=== PATIENT | male | born 1950 | race Caucasian/White ===

== ENCOUNTER 2021-11-21 12:46 | Emergency (ER) | payer MEDICARE, BC ==
[~2021-11-21] VITALS: Ht 175.3 cm; Wt 93.0 kg
[~2021-11-21 12:46] MED LIST: ANTIVERT12.5 MG PO; ASPIRIN CHEWABL81 MG PO; ASPIRIN81 MG PO; CIPRO; CIPROFLOXACN250 MG PO; DILAUDID 2MG2 MG/TA1 PO; EQL ASPIRIN LOW81 MG PO; KEFLEX500 M1 PO; LOSARTAN POTASS50 MG PO; METOPROL TAR25 MG PO; PYRIDIUM200 MG PO; ROCEPHIN1 G1 IV; SIMVASTATIN20 MG PO; TAMSULOSIN HCL0.4 MG PO; TERAZOSIN1 MG PO; TOPROL XL50 MG PO; VENLAFAXINE HCL75 M1 PO
[2021-11-21 12:58] VITALS: BP 145/81
[2021-11-21 13:00] VITALS: BP 137/108
[2021-11-21] MEDS ORDERED: TAMSULOSIN0.4 MG PO (13:05)
[2021-11-21 13:34] LABS: HEMATOCRIT 43.2 % (39.0-50.0); HEMOGLOBIN 14.4 g/dl (14.0-18.0); IMMATURE GRANULOCYTES 0.4 % (0.0-5.0); MEAN CELL VOLUME 87.6 fL CALC (80.0-100.0); MEAN CORPUSCULAR HGB 29.2 pG CALC (26.0-32.0); MEAN CORPUSCULAR HGB CONC 33.3 g/dL CAL (32.0-36.0); NEUT# 5.7 thou/uL (1.82-7.42); RED BLOOD COUNT 4.93 mill/uL (4.70-6.10); RED CELL DISTRI WIDTH 13.3 % (11.5-15.5)
[2021-11-21 14:16] LABS: ALBUMIN 4.9 g/dL (3.2-5.0); ALKALINE PHOSPHATASE 109 u/l (38-126); ANION GAP 14 (6-22 (CALC)); BILIRUBIN, TOTAL 0.8 mg/dL (0.0-1.4); BUN 23 mg/dL (8-23); BUN/CREATININE RATIO 21 (12-20 (CALC)); CARBON DIOXIDE 28 mmol/l (22-30); CHLORIDE 103 mmol/l (95-108); CREATININE 1.1 mg/dL (0.7-1.3); GFR FOR AFR.AMER. > 60 ML/MIN (>=60 (CALC)); GFR OTHER RACES > 60 ML/MIN (>=60 (CALC)); POTASSIUM 4.2 mmol/l (3.5-5.1); SGOT/AST 29 u/l (19-48); SODIUM 140 mmol/l (137-146); TOTAL PROTEIN 7.6 g/dL (6.3-8.2)
[2021-11-21 14:28] LABS: MYOGLOBIN 33 ng/mL (0 - 121)
[2021-11-21 14:49] LABS: URINE BILIRUBIN - DIPSTICK NEGATIVE (NEGATIVE); URINE BLOOD DIPSTICK NEGATIVE (NEGATIVE); URINE COLOR YELLOW; URINE GLUCOSE - DIPSTICK NEGATIVE (NEGATIVE); URINE KETONE NEGATIVE (NEGATIVE); URINE LEUK ESTERASE NEGATIVE (NEGATIVE); URINE PROTEIN - DIPSTICK NEGATIVE (NEG-TRACE); URINE SPECIFIC GRAVITY 1.015; URINE UROBILINOGEN - DIPSTICK 0.2 E.U./dL (0.2)
[2021-11-21 14:55] LABS: URINE NITRITE - DIPSTICK NEGATIVE (Negative)
[2021-11-21] MEDS ORDERED: MECLIZINE25 M2 PO (15:10)
[2021-11-21 15:41] VITALS: BP 136/74
== END 2021-11-21 15:47 | disposition home or self-care (01) ==
LOC: ED 12:46
PROVIDERS: Nurse Practitioner
DX: R42 Dizziness and giddiness (principal); I10 Essential (primary) hypertension; Z86.73 Personal history of transient ischemic attack (TIA), and cerebral infarction without residual deficits

== ENCOUNTER 2022-02-04 08:59 | Emergency (ER) | payer MEDICARE, BC ==
[~2022-02-04] VITALS: Ht 175.3 cm; Wt 92.9 kg
[~2022-02-04 08:59] MED LIST changes: +MECLIZINE25 M2 PO; +TAMSULOSIN0.4 MG PO
[2022-02-04 09:57] VITALS: BP 153/77
[2022-02-04 10:01] VITALS: BP 153/131
[2022-02-04 10:12] VITALS: BP 146/73
[2022-02-04 10:18] LABS: URINE BILIRUBIN - DIPSTICK NEGATIVE (NEGATIVE); URINE BLOOD DIPSTICK SMALL (NEGATIVE); URINE COLOR YELLOW; URINE GLUCOSE - DIPSTICK NEGATIVE (NEGATIVE); URINE KETONE NEGATIVE (NEGATIVE); URINE PROTEIN - DIPSTICK 30 mg/dL (NEG-TRACE); URINE SPECIFIC GRAVITY >=1.030; URINE UROBILINOGEN - DIPSTICK 0.2 E.U./dL (0.2)
[2022-02-04 10:21] LABS: URINE LEUK ESTERASE SMALL (NEGATIVE); URINE NITRITE - DIPSTICK POSITIVE (Negative)
[2022-02-04 10:26] LABS: URINE WBC 50-100 WBC/hpf (0-5)
[2022-02-04 10:30] VITALS: BP 155/79
[2022-02-04 10:43] LABS: HEMATOCRIT 44.4 % (39.0-50.0); HEMOGLOBIN 14.5 g/dl (14.0-18.0); IMMATURE GRANULOCYTES 1.1 % (0.0-5.0); MEAN CORPUSCULAR HGB 29.1 pG CALC (26.0-32.0); MEAN CORPUSCULAR HGB CONC 32.7 g/dL CAL (32.0-36.0); NEUT# 14.23 thou/uL (1.82-7.42); RED BLOOD COUNT 4.99 mill/uL (4.70-6.10); RED CELL DISTRI WIDTH 13.4 % (11.5-15.5)
[2022-02-04 10:53] LABS: ALKALINE PHOSPHATASE 85 u/l (38-126); ANION GAP 10 (6-22 (CALC)); BILIRUBIN, TOTAL 0.6 mg/dL (0.0-1.4); BUN 28 mg/dL (8-23); BUN/CREATININE RATIO 24 (12-20 (CALC)); CARBON DIOXIDE 29 mmol/l (22-30); CHLORIDE 104 mmol/l (95-108); CREATININE 1.2 mg/dL (0.7-1.3); GFR FOR AFR.AMER. > 60 ML/MIN (>=60 (CALC)); GFR OTHER RACES 59 ML/MIN (>=60 (CALC)); POTASSIUM 4.1 mmol/l (3.5-5.1); SGOT/AST 27 u/l (19-48); SODIUM 139 mmol/l (137-146); TOTAL PROTEIN 7.2 g/dL (6.3-8.2)
[2022-02-04] MEDS ORDERED: CEFDINIR300 MG PO (12:25)
[2022-02-04 12:27] VITALS: BP 155/79
--- NOTE | 2022-02-06 13:28 | NUR ---
Pt prescribed cefdinir 300 mg po daily x 14 days for UTI. Recommended dose is cefdinir [address] Ernst gave verbal order to change rx to cefdinir 300 mg po bid x 10 days. Called [facility] with rx for remainder of cefdinir 300 mg po bid x 3 days. Attempted to contact pt via phone to increase dose to twice daily, however no answer and unable to leave voicemail.
== END 2022-02-04 12:32 | disposition home or self-care (01) ==
LOC: ED 08:59
PROVIDERS: Family Medicine
DX: N39.0 Urinary tract infection, site not specified (principal); I10 Essential (primary) hypertension; B96.89 Other specified bacterial agents as the cause of diseases classified elsewhere; F17.200 Nicotine dependence, unspecified, uncomplicated; Z86.73 Personal history of transient ischemic attack (TIA), and cerebral infarction without residual deficits; Z20.822 Contact with and (suspected) exposure to COVID-19

== ENCOUNTER 2022-04-16 09:01 | Emergency (ER) | payer MEDICARE, BC ==
[2022-04-16] VITALS (9 sets, daily range): BP systolic 121–155; BP diastolic 60–82
[~2022-04-16] VITALS: Ht 175.3 cm; Wt 93.2 kg
[~2022-04-16 09:01] MED LIST changes: +CEFDINIR300 MG PO
[2022-04-16] MEDS ORDERED: VENLAFAXINE HCL75 M1 PO (09:28)
[2022-04-16 09:30] LABS: BASO% 0.1 % (0-3); HEMATOCRIT 43.2 % (39.0-50.0); IMMATURE GRANULOCYTES 1.3 % (0.0-5.0); LYMPH% 6.9 % (15-41); MEAN CORPUSCULAR HGB 28.5 pG CALC (26.0-32.0); MEAN CORPUSCULAR HGB CONC 32.4 g/dL CAL (32.0-36.0); MONO% 8.1 % (2-13); NEUT# 16.02 thou/uL (1.82-7.42); NEUT% 83.6 % (42-76); RED BLOOD COUNT 4.91 mill/uL (4.70-6.10); RED CELL DISTRI WIDTH 13.5 % (11.5-15.5)
[2022-04-16 09:43] LABS: ALBUMIN 4.1 g/dL (3.2-5.0); ALKALINE PHOSPHATASE 68 u/l (38-126); ANION GAP 14 (6-22 (CALC)); BILIRUBIN, TOTAL 0.7 mg/dL (0.2-1.3); BUN 30 mg/dL (8-23); BUN/CREATININE RATIO 29 (12-20 (CALC)); CARBON DIOXIDE 27 mmol/l (22-30); CHLORIDE 101 mmol/l (95-108); GFR FOR AFR.AMER. > 60 ML/MIN (>=60 (CALC)); GFR OTHER RACES > 60 ML/MIN (>=60 (CALC)); POTASSIUM 3.8 mmol/l (3.5-5.1); SGOT/AST 37 u/l (19-48); SODIUM 137 mmol/l (137-146)
[2022-04-16] MEDS ORDERED: TRAZODONE100 MG PO (10:51)
== END 2022-04-16 11:17 | disposition home or self-care (01) ==
LOC: ED 09:01
PROVIDERS: Family Medicine
DX: U07.1 COVID-19 (principal); R53.1 Weakness; G47.00 Insomnia, unspecified; I10 Essential (primary) hypertension; F17.200 Nicotine dependence, unspecified, uncomplicated; Z86.73 Personal history of transient ischemic attack (TIA), and cerebral infarction without residual deficits

== ENCOUNTER 2022-09-09 12:01 | Observation (INO) | payer MEDICARE, BC ==
[~2022-09-09] VITALS: Ht 175.3 cm; Wt 90.0 kg
[2022-09-09] VITALS (43 sets, daily range): BP systolic 110–147; BP diastolic 61–80
[~2022-09-09 12:01] MED LIST changes: +TRAZODONE100 MG PO
--- NOTE | 2022-09-09 12:01 | NUR ---
PT WHEEL TO ROOM 13 FOR TRIAGE. PROVIDER IN ROOM WITH PT.
--- NOTE | 2022-09-09 12:05 | NUR ---
STROKE ALERT CALLED, PT WHEELED TO CT SCAN, IV SITE OBTAINED, DR IRON PARKER ON TELE SCREEN FOR EXAMINATION. BGL 122. VSS, PT IS A BIT ANXIOUS.
[2022-09-09 12:30] LABS: BASO% 0.4 % (0-3); EOS% 2.6 % (0-8); HEMATOCRIT 46.8 % (39.0-50.0); HEMOGLOBIN 14.8 g/dl (14.0-18.0); IMMATURE GRANULOCYTES 0.4 % (0.0-5.0); LYMPH% 20.2 % (15-41); MEAN CELL VOLUME 88.8 fL CALC (80.0-100.0); MEAN CORPUSCULAR HGB 28.1 pG CALC (26.0-32.0); MEAN CORPUSCULAR HGB CONC 31.6 g/dL CAL (32.0-36.0); MONO% 6.3 % (2-13); NEUT# 5.91 thou/uL (1.82-7.42); NEUT% 70.1 % (42-76); RED BLOOD COUNT 5.27 mill/uL (4.70-6.10); RED CELL DISTRI WIDTH 12.7 % (11.5-15.5)
[2022-09-09 12:44] LABS: PROTHROMBIN TIME 10.4 SECONDS (9.0-12.5)
[2022-09-09 12:45] LABS: ALBUMIN 4.1 g/dL (3.2-5.0); ALKALINE PHOSPHATASE 78 u/l (38-126); ANION GAP 11 (6-22 (CALC)); BILIRUBIN, TOTAL 0.8 mg/dL (0.2-1.3); BUN 20 mg/dL (8-23); BUN/CREATININE RATIO 16 (12-20 (CALC)); CARBON DIOXIDE 28 mmol/l (22-30); CHLORIDE 107 mmol/l (95-108); CREATININE 1.3 mg/dL (0.7-1.3); GFR FOR AFR.AMER. > 60 ML/MIN (>=60 (CALC)); GFR OTHER RACES 54 ML/MIN (>=60 (CALC)); SGOT/AST 31 u/l (19-48); SODIUM 141 mmol/l (137-146); TOTAL PROTEIN 6.9 g/dL (6.3-8.2)
--- NOTE | 2022-09-09 13:00 | NUR ---
PT IN ROOM WITH FAMILY MEMBERS, PT IS BIT EMOTIONAL. PT WILL BE ADMITTED FOR OBSERVATION ONCE ALL RESULTS ARE BACK. VSS, NAD. PT APPEARS TO BE ANXIOUS.
--- NOTE | 2022-09-09 13:32 | NUR ---
Patient arrived to the unit via stretcher accompanied by ALDAIR Lee. Report given, assessment completed. Patient is alert and oriented x 3. Lungs clear to ascultation. Denies any pain at this time. Skin intact. Pedal/peripheral pulses strong. Moves all extremities independently. Last BM was 09/08/22. movement was moderate, brown and soft. Patient ambulates independently. 20 LAC flushes and draws with no issues. Former smoker. NIH of 0. State he had L ankle sx. SR on the monitor. Bed in low position. Call light next to L hand. Will continue to monitor.
--- NOTE | 2022-09-09 14:00 | NUR ---
PT IN ROOM WITH FAMILY MEMBERS. PT IS ON THE PHONE. NO CONCERNS TO REPORT AT THIS TIME. VITALS REMAIN STABLE WNL.
--- NOTE | 2022-09-09 15:13 | NUR ---
REPORT GIVEN TO ALDARI RUTLEDGE ON ICU. PT IS GOING TO BED 8
--- NOTE | 2022-09-09 15:45 | NUR ---
[facility] FAMILY IS WITH PT. PT HAD NO COMPLAINTS, VSS, NAD. PT REPORTS HE IS FEELING BETTER.
--- NOTE | 2022-09-09 18:23 | NUR ---
PATIENT SITTING UP IN BED. SR ON THE MONITOR. NAD NOTED. BED IN LOW POSITION. CALL LIGHT PLACED BY PATIENT BEHIND HEAD.
--- NOTE | 2022-09-09 19:53 | NUR ---
PT SITTING UP IN BED WATCHING TV. PT IS A&OX3, INDEPENDENTLY AMBULATORY, NIH OF 0 WITH NAD AND VSS. BED IN THE LOWEST POSITION WITH BEDSIDE TABLE AND CALL LIGHT WITHIN REACH. WILL CONTINUE TO MONITOR.
[2022-09-09 20:38] LABS: URINE BILIRUBIN - DIPSTICK NEGATIVE (NEGATIVE); URINE BLOOD DIPSTICK NEGATIVE (NEGATIVE); URINE COLOR YELLOW; URINE GLUCOSE - DIPSTICK NEGATIVE (NEGATIVE); URINE KETONE Negative (NEGATIVE); URINE LEUK ESTERASE NEGATIVE (NEGATIVE); URINE NITRITE - DIPSTICK NEGATIVE (Negative); URINE PH 5.5 (4.5-8.0); URINE PROTEIN - DIPSTICK NEGATIVE (NEG-TRACE); URINE UROBILINOGEN - DIPSTICK 0.2 E.U./dL (0.2)
--- NOTE | 2022-09-09 22:02 | NUR ---
PT SITTING UP IN BED WATCHING TV WITH NAD AND VSS. BED IN THE LOWEST POSITION WITH BEDSIDE TABLE AND CALL LIGHT WITHIN REACH. WILL CONTINUE TO MONITOR.
[2022-09-10] VITALS (45 sets, daily range): BP systolic 85–141; BP diastolic 57–78
--- NOTE | 2022-09-10 02:48 | NUR ---
PT COMFORTABLY RESTING IN BED WITH EYES CLOSED WITH NAD AND VSS. PT O2 DROPPED INTO THE MID 80'S WHILE SLEEPING, APPLIED 2LNC, NOW O2 AT 99%. BED IN THE LOWEST POSITION WITH BEDSIDE TABLE AND CALL LIGHT WITHIN REACH. WILL CONTINUE TO MONITOR.
[2022-09-10 04:50] LABS: HEMATOCRIT 44.5 % (39.0-50.0); HEMOGLOBIN 14.2 g/dl (14.0-18.0); MEAN CELL VOLUME 89.5 fL CALC (80.0-100.0); MEAN CORPUSCULAR HGB 28.6 pG CALC (26.0-32.0); MEAN CORPUSCULAR HGB CONC 31.9 g/dL CAL (32.0-36.0); RED BLOOD COUNT 4.97 mill/uL (4.70-6.10); RED CELL DISTRI WIDTH 12.7 % (11.5-15.5)
[2022-09-10 05:08] LABS: ANION GAP 10 (6-22 (CALC)); BUN 22 mg/dL (8-23); BUN/CREATININE RATIO 19 (12-20 (CALC)); CALCULATED LDLCHOLESTEROL 100 mg/dL (62-129 (CALC)); CARBON DIOXIDE 27 mmol/l (22-30); CHLORIDE 107 mmol/l (95-108); CHOLESTEROL HDL RATIO 4.2 (<4.4 (CALC)); CREATININE 1.2 mg/dL (0.7-1.3); GFR FOR AFR.AMER. > 60 ML/MIN (>=60 (CALC)); GFR OTHER RACES 59 ML/MIN (>=60 (CALC)); HDL CHOLESTEROL 37 mg/dL (39.0-59.0); MAGNESIUM 2.1 mg/dL (1.6-2.3); POTASSIUM 4.1 mmol/l (3.5-5.1); SODIUM 139 mmol/l (137-146); TOTAL CHOLESTEROL 156 mg/dl (0-199); TOTAL TRIGLYCERIDES 91 mg/dl (0-149); VLDL CHOLESTROL 18 mg/dl (0-38 (CALC))
--- NOTE | 2022-09-10 07:18 | NUR ---
PT SEEN AWAKE, ALERT, ORIENTED X 3. PT DENIES ANY SYMPTOMS HE EXPERIENCED YESTERDAY, ABLE TO AMBULATE TO BR WITHOUT ASSIST. PT STATES THAT HE DOES HAVE ANXIETY AND BELIEVES THAT MAY BE CAUSE OF THE PERIPHERAL NUMBNESS. LUNGS CLEAR, RA. NO DISTRESS.
--- NOTE | 2022-09-10 11:31 | NUR ---
PT PREMEDICATED FOR MRI, WAS ABLE TO TOLERATE TEST. VISITORS AT BEDSIDE. NO CHANGE IN STATUS, WAITS IN THE BED FOR RESULTS.
--- NOTE | 2022-09-10 12:10 | NUR ---
PT AND DAUGHTER UPDATED ON RESULTS OF MRI. PT EATING LUNCH WITHOUT DIFFICULTY.
--- NOTE | 2022-09-10 14:53 | NUR ---
PT REMAINS AT REST IN THE BED WITHOUT EVIDENCE OF DISTRESS, DAUGHTER AT BEDSIDE. PT WAITS FOR TELENEUROLOGIST, HOPES FOR DISCHARGE AFTER.
--- NOTE | 2022-09-10 19:23 | NUR ---
PT SITTING UP IN BED WATCING TV WITH FAMILY AT BEDSIDE. NAD, VSS, NIH 0 BED IN THE LOWEST POSITION WITH BEDSIDE TABLE AND CALL LIGHT WITHIN REACH. WILL CONTINUE TO MONITOR.
[2022-09-11] VITALS (15 sets, daily range): BP systolic 101–138; BP diastolic 50–75
--- NOTE | 2022-09-11 01:00 | NUR ---
PT COMFORTABLY SLEEPING WITH NAD AND VSS. BED IN THE LOWEST POSITION WITH BEDSIDE TABLE AND CALL LIGHT WITHIN REACH. WILL CONTINUE TO MONITOR.
--- NOTE | 2022-09-11 02:31 | NUR ---
PT STILL SLEEPING COMFORTABLY IN BED WITH MONIKA AND VSS. WILL CONTINUE TO MONITOR.
--- NOTE | 2022-09-11 07:35 | NUR ---
PATIENT LYING IN BED UPRIGHT WATCHING TV. AOX3, ANSWERING QUESTIONS APPROPRIATELY. NO C/O OF PAIN. MOVES ALL EXTREMITIES, AMBULATING TO RESTROOM WITHOUT DIFFICULTY. UNLABORED RESPIRATIONS; O2 SATS IN UPPER 90'S. ASSESSMENT PERFORMED.
--- NOTE | 2022-09-11 09:00 | NUR ---
PATIENT AOX3, AMBULATORY, WITHOUT C/O PAIN OR DISTRESS. ECHOCARDIAGRAM ORDERED. PATIENT EAGER TO BE DISCHARGED.
--- NOTE | 2022-09-11 13:00 | NUR ---
PATIENT RESTING IN BED UPRIGHT WATCHING TV. ECHO COMPLETED AND WAITING ON RESULTS. NO COMPLAINTS OR REQUESTS AT THIS TIME. PATIENT ASKING ABOUT DISCHARGE.
[2022-09-11] MEDS ORDERED: ATORVASTATIN CA40 MG PO (15:10)
--- NOTE | 2022-09-11 15:42 | NUR ---
PT HAS BEEN DISCHARGED FROM [facility]. PT VERBALIZED UNDERSTANDING OF DC INSTRUCTIONS, WAS TAKEN BY WHEELCHAIR TO VEHICLE. PT LEAVES [facility] IN STABLE CONDITION.
== END 2022-09-11 15:30 | disposition home or self-care (01) ==
LOC: ED 12:01 → ED-I 14:10 → ED 14:23 → ICU 14:24
PROVIDERS: Family Medicine; ADMIT Internal Medicine; ATTEND Internal Medicine
DX: G45.9 Transient cerebral ischemic attack, unspecified (principal); I10 Essential (primary) hypertension; F32.A Depression, unspecified; E78.5 Hyperlipidemia, unspecified; F40.240 Claustrophobia; N40.0 Benign prostatic hyperplasia without lower urinary tract symptoms; Z86.73 Personal history of transient ischemic attack (TIA), and cerebral infarction without residual deficits
CPT/HCPCS: J2060; Q9967